=== PATIENT | male | born 1960 | race Caucasian/White ===

== ENCOUNTER 2018-10-20 13:06 | Emergency (ER) | payer OTHER, SELFPAY ==
[2018-10-20 13:08] VITALS: BP 126/92; PULSE 94; RESP 18; TEMP 36.6; O2SAT 98; BMI 38.0
--- NOTE | 2018-10-20 13:15 | CM.ED ---
SOCIAL WORK NOTE THIS WORKER RESPONDED TO UNRESPONSIVE PATIENT BROUGHT IN BY EMS FROM [facility]. THIS WORKER MET WITH PATIENT'S EMERSON OUTSIDE PATIENT'S ROOM. INTRODUCED SELF AND ESCORTED TO WAITING ROOM. 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 REPORTS PATIENT FOLLOWS WITH [facility] AND IS HOPING ONCE PATIENT IS STABLE WILL BE TRANSFERRED. REPORTS PATIENT WAS FEELING DIZZY YESTERDAY, BUT SEEMED TO BE DOING BETTER TODAY. REPORTS PATIENT WITH NO KNOWN ALLERGIES AND STATES HAS NEVER REALLY BEEN SICK UP UNTIL DX. PROVIDED THIS WORKER WITH LIST OF PATIENT'S CURRENT MEDICATION WHICH WERE GIVEN TO NURSING. STATES SHE AND PATIENT WERE OUT SHOPPING, BOTH IN DIFFERENT STORES, WHEN SHE HEARD THE AMBULANCE. MUCH EMOTIONAL SUPPORT PROVIDED THROUGHOUT. THIS WORKER TO REMAIN AVAILABLE FOR CONTINUED SUPPORT. GILL DAWSON, TOURING PRODUCTION MANAGER, REFERENCE SERVICES HEAD.
[2018-10-20 13:16] VITALS: O2SAT 97
[2018-10-20] MEDS: Etomidate 20 MG/10 ML Vial 30 MG IV (13:20)
[2018-10-20] MEDS: Rocuronium Bromide 50 MG/5 ML Vial 75 MG IV (13:20)
[2018-10-20 13:25] VITALS: PULSE 94; RESP 14; O2SAT 95
[2018-10-20 13:26] LABS: Bedside Glucose 85 mg/dL (70-110)
--- NOTE | 2018-10-20 13:29 | CT_ITS ---
STUDY: CT BRAIN WITHOUT CONTRAST REASON FOR EXAM: Male, 58 years old. Patient was found unresponsive. RADIATION DOSAGE (If Supplied By Facility): CTDIvol = ( 44.99 ) mGy, DLP = ( 863.60 ) mGycm TECHNIQUE: Transaxial CT imaging of the brain was performed without administration of intravenous contrast material. Individualized dose optimization techniques were used for this CT. COMPARISON: No relevant priors. FINDINGS: An endotracheal tube is seen in situ. Soft tissue swelling overlying the right parietal occipital bones. Not significantly depressed fracture of the right temporal bone with overlying acute subdural hematoma measuring 7.1 mm. Normal size ventricles and extra-axial spaces for the patient's age. Normal white matter tracts of the cerebral hemispheres. Normal basal ganglia and thalami. Normal brainstem. Normal cerebellum. There is evidence of subarachnoid hemorrhage underlying the frontal lobes bilaterally slightly worse on the left side. Is also evidence of a small acute subdural hematoma overlying the posterior right temporal parietal occipital lobes. There is also evidence of the contusion along the anterior aspect of the frontal lobes superiorly. There is opacification of the sphenoid sinus with high density. This may represent inspissated mucosa. This also evidence of opacification of the ethmoid sinuses with an air-fluid level in the left maxillary sinus. And air-fluid levels also seen in the frontal sinus. CT/Brain/Head without Contrast IMPRESSION: Small right acute subdural hematoma overlying the right temporoparietal occipital lobes. Nondepressed skull fracture involving the right temporal bone with overlying acute epidural Mild subarachnoid hemorrhage with contusion involving the frontal lobes superiorly bilaterally. Acute epidural hematoma measuring 7.1 mm. No significant shift of the midline structures. N.B. : The above information has been verbally conveyed by Sagar Umanzor to Ulises Spivey on 10/20/2018 14:48:03 (ET). Electronically Signed: Sagar Umanzor, at 14:50 EDT , Service support ,
--- NOTE | 2018-10-20 13:33 | ED.VISSUMM ---
- ER Visit Summary Date of Service: 10/20/18 Chief Complaint: Fall History of Present Illness: The patient is a 58 M who presents with a fall that occurred today. Patient fell at a store today. It was unwitnessed. Patient was having difficulty breathing upon arrival to the emergency department. Patient was nonverbal. EMS reports patient had a normal blood sugar. EMS states the patient was having episodes of apnea and they were having to ventilated with bag valve mask intermittently. reports patient has a history of T-cell lymphoma. Physical Examination: Vital signs are stable. Patient has a GCS of 7. Patient is nonverbal. Cranial nerves II through XII are grossly intact. There are no focal neuro deficits at this time. Pupils are equal, round, reactive to light. Oral mucosa is pink and moist. The right external auditory canal is noted to be bleeding. Left external auditory canal is clear. Heart was regular rate and rhythm. Lungs are clear and equal bilaterally. Abdomen is soft. Test Results: CT scan of the brain was obtained. There is a right subdural hematoma. There is no midline shift noted. CBC shows a normal white blood cell count. There is a mild anemia. Metabolic profile is within normal limits. Emergency Department Course and Treatment: Patient was sedated with 30 mg of etomidate and paralyzed with 75 mg of rocuronium. Patient was intubated with an 8.0 ET tube to 22 cm at the lip. Propofol sedation was started. Patient was placed in restraints. Chest x-ray shows good position of the ET tube and OG tube. Hurtado catheter was also placed. Patient sees an oncologist at [facility], Dr. Salazar. is requesting the patient be transferred there. Case was discussed with the neurosurgeon on-call. He he wanted the patient transferred to the trauma service. Case was discussed with trauma and emergency medicine at [facility]. Patient will be transferred to the emergency department there as a trauma team. Disposition: Transfer to [facility] Impression: 1. Subdural hematoma 2. History of T-cell lymphoma This note was generated with Soompiation software. It may contain incorrect words, spelling, and punctuation that were not noted in review of the chart prior to signing ED Disposition - Plan for ED Patient: Referrals: Jd Roche Jr., MD [Primary Care Provider] -
--- NOTE | 2018-10-20 13:42 | ED.DCSUM_ITS ---
- ER Visit Summary Date of Service: 10/20/18 Chief Complaint: Fall History of Present Illness: The patient is a 58 M who presents with a fall that occurred today. Patient fell at a store today. It was unwitnessed. Patient was having difficulty breathing upon arrival to the emergency department. Patient was nonverbal. EMS reports patient had a normal blood sugar. EMS states the patient was having episodes of apnea and they were having to ventilated with bag valve mask intermittently. reports patient has a history of T-cell lymphoma. Physical Examination: Vital signs are stable. Patient has a GCS of 7. Patient is nonverbal. Cranial nerves II through XII are grossly intact. There are no focal neuro deficits at this time. Pupils are equal, round, reactive to light. Oral mucosa is pink and moist. The right external auditory canal is noted to be bleeding. Left external auditory canal is clear. Heart was regular rate and rhythm. Lungs are clear and equal bilaterally. Abdomen is soft. Test Results: CT scan of the brain was obtained. There is a right subdural hematoma. There is no midline shift noted. CBC shows a normal white blood cell count. There is a mild anemia. Metabolic profile is within normal limits. Emergency Department Course and Treatment: Patient was sedated with 30 mg of etomidate and paralyzed with 75 mg of rocuronium. Patient was intubated with an 8.0 ET tube to 22 cm at the lip. Propofol sedation was started. Patient was placed in restraints. Chest x-ray shows good position of the ET tube and OG tube. Hurtado catheter was also placed. Patient sees an oncologist at [facility], Dr. Salazar. is requesting the patient be transferred there. Case was discussed with the neurosurgeon on-call. He he wanted the patient transferred to the trauma service. Case was discussed with trauma and emergency medicine at [facility]. Patient will be transferred to the emergency department there as a trauma team. Disposition: Transfer to [facility] Impression: 1. Subdural hematoma 2. History of T-cell lymphoma This note was generated with Fosuboation software. It may contain incorrect words, spelling, and punctuation that were not noted in review of the chart prior to signing ED Disposition - Plan for ED Patient: Referrals: Jd Roche Jr., MD [Primary Care Provider] -
[2018-10-20] MEDS: Propofol 10MG/Ml 1,000 MG/100 ML Bottle 7.2 MG CONT INF (13:46)
--- NOTE | 2018-10-20 13:54 | CT_ITS ---
STUDY: CT CERVICAL SPINE WITHOUT CONTRAST REASON FOR EXAM: Male, 58 years old. The patient was found responsive. RADIATION DOSAGE (If Supplied By Facility): CTDIvol = ( 28.19 ) mGy, DLP = ( 709.45 ) mGycm TECHNIQUE: High resolution transaxial imaging was performed without contrast material. Sagittal and coronal images were reconstructed. Individualized dose optimization techniques were used for this CT. COMPARISON: None FINDINGS: An endotracheal tube is seen in situ. Normal craniovertebral junction. Normal anterior atlantoaxial articulation. Normal odontoid process. There is straightening of the normal cervical lordosis. Normal vertebral bodies and posterior osseous elements. C2-3: Normal endplates. Normal disc height and morphology. Normal central canal and intervertebral neuroforamina. C3-4: Normal endplates. Normal disc height and morphology. Normal central canal and intervertebral neuroforamina. C4-5: Normal endplates. Normal disc height and morphology. Normal central canal and intervertebral neuroforamina. C5-6: Moderate degree of disc space narrowing and degeneration at the C5-C6 level with uncovertebral arthrosis. Moderate degree of right neural foraminal stenosis. C6-7: Disc space narrowing and spondylosis. Uncovertebral arthrosis with moderate degree of left neural foraminal stenosis. C7-T1: Disc space narrowing and spondylosis. Normal visualized soft tissue structures. CT/Spine Cervical without Contras IMPRESSION: Multilevel degenerative changes, as described above. Electronically Signed: Sagar Umanzor, at 15:12 EDT , Service support ,
[2018-10-20 14:01] LABS: Absolute Lymphocyte Count 1.63 X10^3/ul (0.83-4.51); Absolute Neutrophil Count 5.7 X10^3/uL (2.0-7.7); Basophil# 0.03 X10^3/uL; Basophil% 0.4 % (0-1); Hemoglobin 12.4 g/dl (13.0-16.5); Lymphocyte # 1.63 X10^3/ul (4.0); Lymphocyte % 19.1 % (19-41); Mean Corp Hgb Conc 32.6 g/gl (32-36); Mean Corpuscular Hgb 30.8 pg (27.0-32.0); Mean Corpuscular Volume 94.3 fL (80-94); Mean Platelet Vol. 9.3 fl (6.2-12.0); Monocyte# 1.01 X10^3/uL; Monocyte% 11.8 % (0-10); Neutrophil # 5.72 X10^3/uL (2.7-7.7); Neutrophil % 66.8 % (47-70); Platelet Count 219 K/mm3 (150-450); Prothrombin Time (Protime)PT. 12.7 SECONDS (11.7-14.9); RBC Distribution Width CV 16.4 % (11.6-14.6); RBC Distribution Width SD 56.5 fl (35.1-43.9); Red Blood Count 4.03 M/mm3 (4.6-6.2); White Blood Count 8.6 K/mm3 (4.4-11.0)
[2018-10-20 14:02] LABS: POSITIVE COUNT NO; POSITIVE DIFFERENTIAL NO; POSITIVE MORPHOLOGY NO
--- NOTE | 2018-10-20 14:02 | RAD_ITS ---
STUDY: X-RAY CHEST REASON FOR EXAM: Male, 58 years old. ET tube and OG placement, unresponsive TECHNIQUE: Single frontal view of the chest. COMPARISON: None. FINDINGS: Endotracheal tube tip is 4.7 cm from george. Enteric tube tip excluded by collimation in the abdomen. Right chest wall port, tip in SVC. Right midlung atelectasis and left midlung atelectasis and alveolar disease. There is no demonstrated pleural abnormality. Normal size heart. Normal mediastinum and emmie. Normal visualized pulmonary arteries. Normal visualized aortic arch and descending thoracic aorta. Normal visualized thoracic spine. Normal visualized ribs, clavicles, and shoulders. There is no demonstrated abnormality of the visualized soft tissue structures of the upper abdomen. RAD/Chest 1 View (Portable) IMPRESSION: Endotracheal tube tip is 4.7 cm from george. Enteric tube tip excluded by collimation in the abdomen. Right midlung atelectasis and left midlung atelectasis and alveolar disease. Electronically Signed: Mukesh Sanchez MD at 15:00 EDT Tel , Service support ,
[2018-10-20] MEDS: 0.9% Normal Saline 1,000 ML 1000 ML IV (14:05)
[2018-10-20 14:13] LABS: AST(SGOT) 28 U/L (15-37); Alanine Aminotransfer ALT/SGPT 25 U/L (16-61); Albumin, Serum 3.2 g/dL (3.2-5.0); Alkaline Phosphatase 110 U/L (45-117); Anion Gap 6 (5-15); BUN 16 mg/dL (7-18); BUN/Creat Ratio 14.7 RATIO (10-20); Calcium,Total 8.5 mg/dL (8.5-10.1); Chloride 104 mmol/L (98-107); Creatinine, Serum 1.09 mg/dL (0.70-1.30); EST Glomerular Filtration Rate 74 mL/min (>60); Est Glom Filt Rate - Afr Amer 90 mL/min (>60); Estimated Creatinine Clearance 78.13 ml/min; Globulin 3.1 g/dL (2.2-4.2); Glucose 87 mg/dL (74-106); Potassium 4.2 mmol/L (3.5-5.1); Protein, Total 6.3 g/dL (6.4-8.2); Sodium Level 138 mmol/L (136-145)
[2018-10-20 14:14] LABS: Bacteria 0 SEEN /hpf (None Seen); Mucous, Urine 0 SEEN /hpf (<or=2+)
[2018-10-20 14:15] LABS: Color, Urine Yellow (Yellow); Glucose, Dipstick Normal (Normal); Ketone-Dipstick Negative (Negative); Leukocyte Esterase-Dipstick Negative /ul (Negative); Nitrite-Dipstick Negative (Negative); Occult Blood-Urine Negative /ul (Negative); Protein-Dipstick Negative (Negative); Urine Bilirubin Dipstick Negative (Negative); Urine Clarity Sl. Cloudy (Clear); Urine Urobilinogen Normal (Normal)
[2018-10-20 14:24] LABS: Red Blood Cells-Urine 0-5 SEEN /hpf (0-5); Squamous Epithelial Cells - UA 0 SEEN /hpf (0-5); White Blood Cells 0-5 SEEN /hpf (0-5)
[2018-10-20 14:29] LABS: Amphetamine Urine VISTA NEGATIVE (<1000 ng/mL); Barbiturate Urine VISTA NEGATIVE (< 200 ng/mL); Benzodiazepine Urine VISTA NEGATIVE (< 200 ng/mL); Cocaine Urine VISTA NEGATIVE (< 300 ng/mL); Ecstacy Urine VISTA POSITIVE (< 500 ng/mL); Methadone Urine VISTA NEGATIVE (< 300 ng/mL); PCP Urine VISTA NEGATIVE (< 25 ng/mL); THC Urine VISTA NEGATIVE (< 50 ng/mL); Vista UDS pH Range 5
[2018-10-20 14:33] VITALS: BP 129/94; PULSE 87; RESP 18; O2SAT 94
[2018-10-20 14:55] LABS: Allen Test POS; Base Excess -1 mmol/L (-2 to +2); Bicarbonate 25.5 mmol/L (22-26); Blood Gas Specimen Type ART; FI02 60; Mode A-C; O2 Delivery Device Vent; PEEP 5; PO2 79 mmHG (75-100); RR 14; SITE L Radial; SO2 94 % (95-99); Time Given 1435; Total Carbon Dioxide 27 mmol/L; Vt 450; pCO2 49.4 mmHg (35-45); pH 7.32 (7.35-7.45)
[2018-10-20 15:05] VITALS: BP 123/84; PULSE 83; RESP 12; O2SAT 96
[2018-10-20 15:57] VITALS: BP 125/88; PULSE 74; RESP 14; O2SAT 97
--- NOTE | 2018-10-20 15:59 | CHAPLAIN ---
Type of Pastoral Visit ___ Initial Visit ___ Follow-up Visit ___ On-call Visit ___ General Patient Visit ___ Spiritual Assessment ___ Family Conference ___ Bereavement ___ Rapid Response ___ Code Blue _x__ Other (describe below) Pastoral Care Referral From ___ Patient ___ Family ___ Nurse ___ Physician _x__ Director Process Engineering ___ Whizzer ___ Other (describe below) Sacrament/Intervention _x__ Active listening ___ Anointing ___ Mu-Ism ___ Bereavement ___ Communion ___ Amelia exploration ___ _x__ Life review _x__ Prayer ___ Reconciliation ___ Sacrament of Sick _x__ Supportive presence ___ Wedding ___ Other (describe below) Pastoral Comments patient is to be transferred out to another hospital; SW recommended spiritual care to spouse of patient; pt is sedated and waiting transfer at this time; spouse is by herself in room and easily explains the events of today and history of pt illness; spouse is tearful and recalls the long cancer journey and of her previous ; spouse admits that her current experience is bringing back difficult memories; spiritual care and emotional support is offered; spouse receives prayer and presence of computer networker as she waits; some family members have already been notified of pending transfer; no other needs noted at this time
== END 2018-10-20 16:50 | disposition short-term general hospital (02) ==
PROVIDERS: Emergency Provider Emergency Medicine; Family Provider Nurse Practitioner Primary Care; PCP Nurse Practitioner Primary Care
DX: S06.5X9A Traumatic subdural hemorrhage with loss of consciousness of unspecified duration, initial encounter (principal); S01.01XA Laceration without foreign body of scalp, initial encounter; H92.21 Otorrhagia, right ear; R06.81 Apnea, not elsewhere classified; R40.2432 Glasgow coma scale score 3-8, at arrival to emergency department; W18.30XA Fall on same level, unspecified, initial encounter; Y93.9 Activity, unspecified; Y92.512 Supermarket, store or market as the place of occurrence of the external cause; Y99.9 Unspecified external cause status; D64.9 Anemia, unspecified; Z79.82 Long term (current) use of aspirin; Z79.899 Other long term (current) drug therapy; Z85.72 Personal history of non-Hodgkin lymphomas
CPT/HCPCS: 31500; 31720; 36600; 51702; 70450; 71045; 72125; 80053; 80307; 81001; 82803; 82962; 84484; 85025; 85610; 94002; 96374; 96375; 99251; 99285; A4216; G0463

== ENCOUNTER 2018-10-31 14:11 | Emergency (ER) | payer OTHER, SELFPAY ==
[2018-10-31 14:12] VITALS: BP 122/76; PULSE 105; RESP 18; TEMP 36.7; O2SAT 93; BMI 34.2
[2018-10-31 14:41] LABS: Bedside Glucose 111 mg/dL (70-110)
--- NOTE | 2018-10-31 15:10 | EKG12_ITS ---
Test Reason : SEIZURE Blood Pressure : / mmHG Vent. Rate : 101 BPM Atrial Rate : 101 BPM P-R Int : 132 ms QRS Dur : 072 ms QT Int : 354 ms P-R-T Axes : 025 -19 016 degrees QTc Int : 459 ms Sinus tachycardia Otherwise normal ECG Confirmed by FILIBERTO HEREDIA MD ([id number]), publishing editor DYLAN BELLA ([id number]) on 11/02/2018 9:19:18 AM Referred By: JADE Confirmed By:FILIBERTO HEREDIA MD
--- NOTE | 2018-10-31 15:10 | CT_ITS ---
STUDY: CT BRAIN WITHOUT CONTRAST REASON FOR EXAM: Male, 58 years old. Seizure. Leg weakness. Recent subdural hematoma. RADIATION DOSAGE (If Supplied By Facility): CTDIvol = ( 44.99 ) mGy, DLP = ( 796.11 ) mGycm TECHNIQUE: Transaxial CT imaging of the brain was performed without administration of intravenous contrast material. Individualized dose optimization techniques were used for this CT. COMPARISON: October 20, 2018. FINDINGS: Normal soft tissue structures. Normal calvarium. There is severe bilateral mastoid opacification. There is right temporal and parietal fracture. Normal size ventricles and extra-axial spaces for the patient's age. Normal white matter tracts of the cerebral hemispheres. Normal basal ganglia and thalami. Normal brainstem. Normal cerebellum. There is improvement of right temporal and parietal extra-axial increased density fluid collections consistent with subdural and/or epidural hematomas measuring 0.9 cm in thickness. There are no findings of an acute ischemic infarction. Moderate mucosal thickening of the paranasal sinuses. CT/Brain/Head without Contrast IMPRESSION: Right sided extra-axial collections with improvement. There is no mass effect or shift of midline. Electronically Signed: Marek Willson MD at 17:08 EDT , Service support ,
--- NOTE | 2018-10-31 15:11 | ED.VISSUMM ---
- ER Visit Summary Date of Service: 10/31/18 Chief Complaint: Possible seizure History of Present Illness: The patient is a 58 M presenting after possible seizure. Patient was just discharged from last night. He was seen on October 20 and diagnosed with subdural hematoma and was transferred to at that time. He was admitted and doing well and discharged yesterday. He has a history of T-cell lymphoma and is in a clinical trial at . states today he had 2 episodes where he fell to the ground and was shaking all over today. He did not hit his head or lose consciousness. Patient states he was awake and alert during these episodes. He denies chest pain or shortness of breath. Denies fever. Denies numbness or weakness. Denies other complaints. Physical Examination: Vitals are stable. Patient is afebrile. Alert no acute distress. HEENT exam is unremarkable. Neck is supple. Lungs are clear and equal bilaterally. Heart is regular rate and rhythm. Abdomen is soft nontender nondistended. Extremities are unremarkable. Skin is warm and dry. No focal neurologic deficit. NIH 0 Remainder of exam is unremarkable. Emergency Department Course and Treatment: CT head shows right sided extra-axial collections with improvement. There is no mass effect or shift of midline. Chest x-ray shows no acute process. CBC normal except for hemoglobin 10.6. Chemistries unremarkable. Troponin is negative. EKG is sinus rate of 101. states he was discharged from yesterday. The plan was to have in home rehab. She has concerns now that he has fallen twice today. Patient was awake and alert during these falls and I do not believe he had a seizure. He is on a pur?ed liquid diet and has been refusing to eat. Discussed with social work and patient would need observation stay for precertification for inpatient rehab. Patient declines admission to the hospital. He is advised of risks including repeated falls, dehydration, and . Patient understands and signed out AGAINST MEDICAL ADVICE. is at bedside. Advised to return to the ED for any worsening complaints. Disposition: Left AGAINST MEDICAL ADVICE Impression: Fall x2, generalized weakness This note was generated with Manzama dictation software. It may contain incorrect words, spelling, and punctuation that were not noted in review of the chart prior to signing ED Disposition - Plan for ED Patient: Referrals: Blade Nice NP-C [Primary Care Provider] -
--- NOTE | 2018-10-31 15:15 | ED.DCSUM_ITS ---
- ER Visit Summary Date of Service: 10/31/18 Chief Complaint: Possible seizure History of Present Illness: The patient is a 58 M presenting after possible seizure. Patient was just discharged from last night. He was seen on October 20 and diagnosed with subdural hematoma and was transferred to at that time. He was admitted and doing well and discharged yesterday. He has a history of T- cell lymphoma and is in a clinical trial at . states today he had 2 episodes where he fell to the ground and was shaking all over today. He did not hit his head or lose consciousness. Patient states he was awake and alert during these episodes. He denies chest pain or shortness of breath. Denies fever. Denies numbness or weakness. Denies other complaints. Physical Examination: Vitals are stable. Patient is afebrile. Alert no acute distress. HEENT exam is unremarkable. Neck is supple. Lungs are clear and equal bilaterally. Heart is regular rate and rhythm. Abdomen is soft nontender nondistended. Extremities are unremarkable. Skin is warm and dry. No focal neurologic deficit. NIH 0 Remainder of exam is unremarkable. Emergency Department Course and Treatment: CT head shows right sided extra-axial collections with improvement. There is no mass effect or shift of midline. Chest x-ray shows no acute process. CBC normal except for hemoglobin 10.6. Chemistries unremarkable. Troponin is negative. EKG is sinus rate of 101. states he was discharged from yesterday. The plan was to have in home rehab. She has concerns now that he has fallen twice today. Patient was awake and alert during these falls and I do not believe he had a seizure. He is on a pur?ed liquid diet and has been refusing to eat. Discussed with social work and patient would need observation stay for precertification for inpatient rehab. Patient declines admission to the hospital. He is advised of risks including repeated falls, dehydration, and . Patient understands and signed out AGAINST MEDICAL ADVICE. is at bedside. Advised to return to the ED for any worsening complaints. Disposition: Left AGAINST MEDICAL ADVICE Impression: Fall x2, generalized weakness This note was generated with LED Light Sense dictation software. It may contain incorrect words, spelling, and punctuation that were not noted in review of the chart prior to signing ED Disposition - Plan for ED Patient: Referrals: Blade Nice NP-C [Primary Care Provider] -
--- NOTE | 2018-10-31 15:16 | NURSING ---
NO OLD EKGS
[2018-10-31 15:25] VITALS: BP 117/78; PULSE 109; RESP 18; O2SAT 94
[2018-10-31 16:32] VITALS: BP 115/73; PULSE 89; RESP 16; O2SAT 95
--- NOTE | 2018-10-31 16:47 | RAD_ITS ---
STUDY: X-RAY CHEST REASON FOR EXAM: Male, 58 years old. Shortness of breath. Dyspnea. Cough. Lymphoma. TECHNIQUE: Single AP portable view of the chest. COMPARISON: October 20, 2018. FINDINGS: Port on the right extends to the lower superior vena cava. The lungs are clear and expanded. There is left granuloma. There is no demonstrated pleural abnormality. Normal size heart. There are calcified left hilar lymph nodes. Normal visualized pulmonary arteries. Normal visualized aortic arch and descending thoracic aorta. Normal visualized thoracic spine. Normal visualized ribs, clavicles, and shoulders. There is no demonstrated abnormality of the visualized soft tissue structures of the upper abdomen. RAD/Chest 1 View (Portable) IMPRESSION: Degenerative changes, as described above. No demonstrated acute cardiopulmonary process. Electronically Signed: Marek Willson MD at 17:16 EDT , Service support ,
[2018-10-31 16:49] LABS: Anion Gap 7 (5-15); BUN 18 mg/dL (7-18); BUN/Creat Ratio 22.2 RATIO (10-20); Calcium,Total 8.6 mg/dL (8.5-10.1); Chloride 104 mmol/L (98-107); Creatinine, Serum 0.81 mg/dL (0.70-1.30); EST Glomerular Filtration Rate 104 mL/min (>60); Est Glom Filt Rate - Afr Amer 126 mL/min (>60); Estimated Creatinine Clearance 105.14 ml/min; Glucose 102 mg/dL (74-106); Sodium Level 136 mmol/L (136-145)
[2018-10-31 16:54] LABS: Absolute Lymphocyte Count 0.89 X10^3/ul (0.83-4.51); Basophil# 0.02 X10^3/uL; Basophil% 0.2 % (0-1); Eosinophil# 0.01 X10^3/uL; Eosinophils% 0.1 % (0-5); Hematocrit 31.8 % (40-54); Hemoglobin 10.6 g/dl (13.0-16.5); Lymphocyte # 0.89 X10^3/ul (4.0); Lymphocyte % 10.9 % (19-41); Mean Corp Hgb Conc 33.3 g/gl (32-36); Mean Corpuscular Hgb 30.6 pg (27.0-32.0); Mean Corpuscular Volume 91.9 fL (80-94); Mean Platelet Vol. 8.8 fl (6.2-12.0); Monocyte# 1.17 X10^3/uL; Monocyte% 14.4 % (0-10); Neutrophil # 5.99 X10^3/uL (2.7-7.7); Neutrophil % 73.8 % (47-70); Platelet Count 214 K/mm3 (150-450); RBC Distribution Width CV 14.9 % (11.6-14.6); RBC Distribution Width SD 48.5 fl (35.1-43.9); Red Blood Count 3.46 M/mm3 (4.6-6.2); White Blood Count 8.1 K/mm3 (4.4-11.0)
[2018-10-31 17:02] LABS: Differential Indicated SCAN CRITERIA MET; POSITIVE COUNT NO; POSITIVE DIFFERENTIAL NO; POSITIVE MORPHOLOGY YES
[2018-10-31 17:52] VITALS: BP 136/75; PULSE 99; RESP 16; O2SAT 94
[2018-10-31 18:18] VITALS: BP 112/74; PULSE 98; RESP 16
[2018-10-31 18:19] VITALS: BP 112/74; PULSE 98; RESP 16; O2SAT 94
[2018-10-31 18:23] LABS: Anisocytosis 1+; Atypical Lymphocyte 1+ %; Platelet Estimate ADEQUATE (ADEQ); Red Cell Morphology N CHROM NORMAL (NORM C&C)
== END 2018-10-31 18:20 | disposition home or self-care (01) ==
LOC: ED 16:28
PROVIDERS: Emergency Provider Emergency Medicine; Family Provider Nurse Practitioner Primary Care; PCP Nurse Practitioner Primary Care
DX: R53.1 Weakness (principal); W18.30XA Fall on same level, unspecified, initial encounter; Z86.79 Personal history of other diseases of the circulatory system; Z53.21 Procedure and treatment not carried out due to patient leaving prior to being seen by health care provider
CPT/HCPCS: 36591; 70450; 71045; 80048; 82962; 84484; 85025; 93005; 99285; A4216

== ENCOUNTER 2019-01-27 13:55 | Emergency (ER) | payer OTHER, SELFPAY ==
[2019-01-27 13:55] VITALS: BP 129/93; PULSE 104; RESP 15; TEMP 36.6; O2SAT 97; BMI 35.7
--- NOTE | 2019-01-27 13:58 | CT_ITS ---
STUDY: CT BRAIN WITHOUT CONTRAST REASON FOR EXAM: Male, 58 years old. History of skull fracture or subdural hematoma. Altered mental status. RADIATION DOSAGE (If Supplied By Facility): CTDIvol = ( 44.99 ) mGy, DLP = ( 846.73 ) mGycm TECHNIQUE: Transaxial CT imaging of the brain was performed without administration of intravenous contrast material. Individualized dose optimization techniques were used for this CT. COMPARISON: 10/31/2016. FINDINGS: Normal soft tissue structures. There is a nondepressed fracture of the right temporal bone. There is mild cerebral atrophy with widening of the extra-axial spaces and ventricular dilatation. There is small right posterior parietal and occipital subdural hematoma measuring about 3 mm in thickness decreased in size since previous examination. Could represent recurrent acute or residual acute subdural hematoma. There is a vague area of increased attenuation in the posterior right parietal region suggestive of acute hemorrhagic contusion. There is obliteration of the cortical sulci in this region. No shift of the midline is seen. There may be minimal mass effect on the right lateral ventricle. Normal basal ganglia and thalami. Normal brainstem. There is questionable minimal blood around the edge of the tentorium on the right side. There is small area of increased density in the interhemispheric region best seen on axial image 34 which may present minimal subdural hematoma. It is a new since the previous exam. There again is ossification of the mastoid air cells bilaterally. There is mild mucosal thickening of the maxillary sinuses. CT/Brain/Head without Contrast IMPRESSION: 1. Residual acute or recurrent right posterior parietal and occipital subdural hematoma as described above. 2. Mild hemorrhagic contusion in the posterior right parietal region with obliteration of the cortical sulci/edema. 3. No shift of the midline is seen. 4. Questionable minimal interhemispheric subdural hematoma. 5. Nondepressed fracture of the right temporal bone. 6. Persistent opacification of the mastoid air cells bilaterally. N.B. : The above information has been verbally conveyed by Clarence Goel MD to Wilton Vail MD, on 01/27/2019 14:40:24 (ET). Electronically Signed: Clarence Goel MD at 14:38 EDT Tel , Service support ,
--- NOTE | 2019-01-27 13:58 | EKG12_ITS ---
Test Reason : NEURO S/SX Blood Pressure : / mmHG Vent. Rate : 102 BPM Atrial Rate : 102 BPM P-R Int : 136 ms QRS Dur : 068 ms QT Int : 348 ms P-R-T Axes : 040 009 010 degrees QTc Int : 453 ms Sinus tachycardia Low voltage QRS Borderline ECG Confirmed by YAN HALE, FILIBERTO ([id number]), editor city CHRISTOPHER SMITH ([id number]) on 01/30/2019 2:11:26 PM Referred By: DUONG Confirmed By:FILIBERTO HEREDIA MD
--- NOTE | 2019-01-27 13:59 | ED.VIS.GEN ---
History of Present Illness Chief Complaint: Neuro S/Sx Informant: Patient Onset: Today Timing: Continuous Narrative: Patient was being transported from [facility] to [facility]. He was at that hospital and being treated for a subdural hematoma, traumatic subarachnoid hemorrhage, basilar skull fracture. He developed a very short 5-minute interval of what paramedics thought was slurred speech and weakness. He arrives, the stroke team was called prior to arrival per protocol. Soon as I arrived in the room I realized it is unlikely to be a stroke I did a NIH stroke scale and did not see any lateralizing signs or symptoms, no facial droop, he tells me he feels no different than normal. However he was diagnosed with a right occlusive DVT of the cephalic vein, he is not on anticoagulation. Past Medical History - Allergies and Home Meds Allergies/Adverse Reactions: Allergies dronabinol [From Marinol] Adverse Reaction (Verified 10/31/18 14:19) Other Primary Care Physician: Blade Nice NP-C [Primary Care Provider] - 3-5 Days Past Medical History: None - Cutaneous T-cell lymphoma, subarachnoid hemorrhage subdural hemorrhage basilar skull fracture Lives: Longterm Smoking Status: Never smoker Review of Systems General: Denies: Fever Eyes: Reports: Visual changes - bilaterally Respiratory: Reports: Dyspnea Gastrointestinal: Denies: Abdominal pain Genitourinary: Denies: Dysuria Musculoskeletal: Denies: Back pain Skin: Reports: Rash Neurological: Reports: Weakness Physical Exam General: - - Patient appears chronically ill Head: Normocephalic Eyes: Perrl, EOMI ENT: Negative for: Nasal congestion Neck: Supple Cardiovascular: - - Slightly irregular Respiratory: No distress Abdomen: Soft, Nontender Extremities: - - Lower extremity edema, chronic wounds are present Skin: - - Chronic diffuse rash from his T-cell lymphoma Neurological: Alert, - - Patient is oriented to person and year as well as president, he is not oriented to place. He has normal equal symmetric upper extremity strength, he has some weakness of his lower extremities bilaterally, this is symmetric. He has no facial droop no sensory deficit, he has no extinction or arlene-inattention. He has no aphasia. He has no visual field cut. Diagnostic/Tx/Re-eval - Medical Decision Making Patient was reevaluated on 2 different occasions, he again is back to baseline. CT shows recurrence of his recent intracranial bleeds, there is no significant change. Patient cannot be anticoagulated, he has been asymptomatic in the ED I am unsure if there is any other medical intervention that can be done at this time. I believe he is safe for discharge, this was quite transient per report and was never found to have any neurological symptoms different than prior symptoms in the ED. I had a long discussion with the , apparently he has had similar symptoms at [facility], I do believe this is secondary to his intracranial bleed. He has had 2 different intracranial bleeds in the past few months. I will check electrolytes and a urine, if these are unremarkable he can be sent back to the [facility]. ED Disposition - Plan for ED Patient: Disposition: Acute Care Hospital [facility] Diagnosis: Intracranial bleed Instructions: Concussion Referrals: Blade Nice NP-C [Primary Care Provider] - 3-5 Days
--- NOTE | 2019-01-27 14:00 | ED.RN ---
PT RECENT ADMIT FOR SUBDURAL HEMATOMA; TO CT ON CART 1401.
[2019-01-27 14:05] VITALS: BP 129/93; PULSE 99; RESP 24; O2SAT 92; O2SAT 94
--- NOTE | 2019-01-27 14:17 | ED.DCSUM_ITS ---
History of Present Illness Chief Complaint: Neuro S/Sx Informant: Patient Narrative: See other template this was generated for the sole purpose of the NIH stroke scale Past Medical History - Allergies and Home Meds Allergies/Adverse Reactions: Allergies dronabinol [From Marinol] Adverse Reaction (Verified 10/31/18 14:19) Other Primary Care Physician: Blade Nice NP-C [Primary Care Provider] - Lives: Senior Living Smoking Status: Unknown if ever smoked Physical Exam Vital Signs/Narrative: Vital Signs Temp Pulse Resp BP Pulse Ox 01/27/19 13:55 97.9 F 104 H 15 129/93 H 97 ED Disposition - Plan for ED Patient: Referrals: Blade Nice NP-C [Primary Care Provider] - STROKE Vital Signs/Narrative: Vital Signs Temp Pulse Resp BP Pulse Ox 01/27/19 13:55 97.9 F 104 H 15 129/93 H 97 - NIHSS Initial 1a Level of Consciousness: 0 1b LOC Questions (Score 2 if aphasic/stupor): 1 1c LOC Commands (Only score 1st attempt): 0 2 Best Gaze (If aphasic, use reflexive mvmts.): 0 3 Visual: 0 4 Facial Palsy: 0 5 Motor Arm Right (UN = amputation/fusion): 0 5 Motor Arm Left: 0 6 Motor Leg Right: 1 6 Motor Leg Left: 0 7 Limb ataxia (Only + if out of proportion): 1 8 Sensory (Aphasia/stupor=0 or 1, coma=2): 0 9 Best Language: 0 10 Dysarthria (mute, coma=2, intubated=UN): 0 11 Extinction and Inattention (only scored if +): 0 Total Score: 3
[2019-01-27 14:28] VITALS: BP 132/93; PULSE 101; RESP 16; O2SAT 93
[2019-01-27 14:36] LABS: Differential Indicated MANUAL DIFF; Hematocrit 27.9 % (40-54); Hemoglobin 8.7 g/dl (13.0-16.5); Mean Corp Hgb Conc 31.2 g/gl (32-36); Mean Corpuscular Hgb 26.7 pg (27.0-32.0); Mean Corpuscular Volume 85.6 fL (80-94); Mean Platelet Vol. 8.8 fl (6.2-12.0); POSITIVE COUNT YES; POSITIVE DIFFERENTIAL NO; POSITIVE MORPHOLOGY YES; Platelet Count 95 K/mm3 (150-450); RBC Distribution Width CV 19.8 % (11.6-14.6); RBC Distribution Width SD 60.1 fl (35.1-43.9); Red Blood Count 3.26 M/mm3 (4.6-6.2)
[2019-01-27 14:43] LABS: International Normalized Ratio 1.1; Prothrombin Time (Protime)PT. 13.7 SECONDS (11.7-14.9)
[2019-01-27 14:44] LABS: Partial Thromboplast Time 43.8 Seconds (24.1-36.2)
[2019-01-27 14:52] LABS: Anion Gap 7 (5-15); BUN 14 mg/dL (7-18); BUN/Creat Ratio 9.3 RATIO (10-20); Calcium,Total 8.2 mg/dL (8.5-10.1); Chloride 106 mmol/L (98-107); Creatinine, Serum 1.51 mg/dL (0.70-1.30); EST Glomerular Filtration Rate 51 mL/min (>60); Est Glom Filt Rate - Afr Amer 62 mL/min (>60); Glucose 95 mg/dL (74-106); Potassium 3.8 mmol/L (3.5-5.1); Sodium Level 139 mmol/L (136-145)
[2019-01-27 14:53] LABS: Eosinophil 1 % (0-5); Lymphocyte 10 % (19-41); Metamyelocyte 2 % (0-1); Monocyte 5 % (0-10); Myelocyte 1 (0-0); Neutrophil-Segmented 81 % (47-70); Nucleated Red Bld Cells,Manual 1 % (0-5); Total Cells Counted 100 (MANUAL DIFF)
[2019-01-27 14:54] LABS: Mucous, Urine 0 SEEN /hpf (<or=2+); Red Blood Cells-Urine 0 SEEN /hpf (0-5)
[2019-01-27 14:54] LABS: Anisocytosis 1+; Hypochromasia 2+; Macrocytosis RARE; Platelet Estimate MOD DEC (ADEQ); Polychromasia 1+
[2019-01-27 14:55] LABS: Absolute Neutrophil Count 4.9 X10^3/uL (2.0-7.7)
[2019-01-27 15:01] LABS: Color, Urine Yellow (Yellow); Glucose, Dipstick Normal (Normal); Ketone-Dipstick 5 mg/dl (Negative); Leukocyte Esterase-Dipstick 25 /ul (Negative); Nitrite-Dipstick Negative (Negative); Occult Blood-Urine Negative /ul (Negative); Protein-Dipstick 15 mg/dl (Negative); Urine Bilirubin Dipstick Negative (Negative); Urine Clarity Sl. Cloudy (Clear); Urine Urobilinogen Normal (Normal)
[2019-01-27 15:03] LABS: Bacteria RARE /hpf (None Seen); Squamous Epithelial Cells - UA 0-5 SEEN /hpf (0-5); White Blood Cells 0-5 SEEN /hpf (0-5)
[2019-01-27 15:58] VITALS: BP 116/82; PULSE 100; RESP 15; TEMP 35
[2019-01-29 08:05] LABS: Bedside Glucose 92 mg/dL (70-110)
[2019-01-29 14:56] LABS: Pathologist Review Reviewed
== END 2019-01-27 16:44 | disposition short-term general hospital (02) ==
PROVIDERS: Emergency Provider Emergency Medicine; Family Provider Nurse Practitioner Primary Care; PCP Nurse Practitioner Primary Care
DX: S06.5X9A Traumatic subdural hemorrhage with loss of consciousness of unspecified duration, initial encounter (principal); S06.6X9A Traumatic subarachnoid hemorrhage with loss of consciousness of unspecified duration, initial encounter; S02.19XA Other fracture of base of skull, initial encounter for closed fracture; X58.XXXA Exposure to other specified factors, initial encounter; Y93.9 Activity, unspecified; Y92.9 Unspecified place or not applicable; Y99.9 Unspecified external cause status; C84.A0 Cutaneous T-cell lymphoma, unspecified, unspecified site; R60.0 Localized edema; Z79.899 Other long term (current) drug therapy
CPT/HCPCS: 36591; 70450; 80048; 81001; 82962; 84484; 85025; 85610; 85730; 93005; 99285; A4216